=== PATIENT | female | born 2005 | race Two or more races ===

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

== ENCOUNTER 2024-08-16 08:09 | Emergency (ER) | payer MEDICAID, OTHER ==
[~2024-08-16] VITALS: Ht 160 cm; Wt 57.6 kg
--- NOTE | 2024-08-16 08:22 | ED.PDOC ---
History of Present Illness HPI Comments 19F presents to the ER w/ no prior MHx associated to the c/c of LLE. Pt reports on having a [employer] ball game yesterday and twisted her ankle and got her left ankle stepped on right after. Pt is ambulatory and the pain type of a 9.510. Social Hx of marijuana use. Denies chills, fever, N/V/D, SOB, CP. No other associated symptoms, modifiers, recent injuries or sick contacts present at this time. Time Seen by MD: 08:15 Reviewed Notes: Nurses Notes, Medications, Allergies Allergies: Coded Allergies: NO KNOWN ALLERGIES (Unverified , 07/18/23) Information Source: Patient Mode of Arrival: Ambulatory Severity: Moderate Timing: Days Duration: Since onset, Days Prehospital treatment: None Past Medical History PAST MEDICAL HISTORY: Denies Surgical History: Denies all surgeries AUDITING CONTROL CLERK History: No Pertinent AUDITING CONTROL CLERK History Family History Family History: Reviewed,noncontributory to illness, Unknown Social History Smoker: Non-Smoker Alcohol: Denies ETOH Use Drugs: Marijuana Lives In: Home Constitutional: reports: others (LLE pain); denies: chills, diaphoresis, fatigue, fever, malaise, sweats, weakness EENTM: denies: blurred vision, double vision, ear bleeding, ear discharge, ear drainage, ear pain, ear ringing, eye pain, eye redness, hearing loss, mouth pain, mouth swelling, nasal discharge, nose bleeding, nose congestion, nose pain, photophobia, tearing, throat pain, throat swelling, voice changes, others Respiratory: denies: cough, hemoptysis, orthopnea, SOB at rest, shortness of breath, SOB with excertion, stridor, wheezing, others Cardiovascular: denies: chest pain, dizzy spells, diaphoresis, Dyspnea on exertion, edema, irregular heart beat, left arm pain, lightheadedness, palpitations, PND, syncope, others Gastrointestinal: denies: abdomen distended, abdominal pain, blood streaked bowels, constipated, diarrhea, dysphagia, difficulty swallowing, hematemesis, melena, nausea, poor appetite, poor fluid intake, rectal bleeding, rectal pain, vomiting, others Genitourinary: denies: abnormal vagina bleeding, burning, dyspareunia, dysuria, flank pain, frequency, hematuria, incontinence, pain, , vagina discharge, urgency, others Neurological: denies: dizziness, fainting, headache, left sided numbness, left sided weakness, numbness, paresthesia, pre-existing deficit, right sided numbness, right sided weakness, seizure, speech problems, tingling, tremors, weakness, others Musculoskeletal: denies: back pain, gout, joint pain, joint swelling, muscle pain, muscle stiffness, neck pain, others Integumetry: denies: bruises, change in color, change in hair/nails, dryness, laceration, lesions, lumps, rash, wounds, others Allergic/Immunocompromised: denies: Difficulty Healing, Frequent Infections, Hives, Itching, others Hematologic/Lymphatic: denies: anemia, blood clots, easy bleeding, easy bruising, swollen glands, others Endocrine: denies: excessive hunger, excessive sweating, excessive thirst, excessive urination, flushing, intolerance to cold, intolerance to heat, unexplained weight gain, unexplained weight loss, others Psychiatric: denies: anxiety, bipolar disorder, depression, hopeless, panic disorder, schizophrenia, sleepless, suicidal, others All Other Systems: Reviewed and Negative Physical Exam Exam Comments left lower dorsal portion of the foot is tender in the middle General Appearance: No Apparent Distress, Normal HEENT: Normal ENT Inspection, Pharynx Normal, TMs Normal Neck: Full Range of Motion, Non-Tender, Normal, Normal Inspection Respiratory: Chest Non-Tender, Lungs Clear, No Accessory Muscle Use, No Respiratory Distress, Normal Breath Sounds Cardiovascular: No Edema, No JVD, No Murmur, No Gallop, Normal Peripheral Pulses, Regular Rate/Rhythm Breast Exam: Deferred Gastrointestinal: No Organomegaly, Non Tender, No Pulsatile Mass, Normal Bowel Sounds, Soft Genitalia: Deferred Pelvic: Deferred Rectal: Deferred Extremities: No calf tenderness, Normal capillary refill, Normal inspection, Normal range of motion, Non-tender, No pedal edema Musculoskeletal : Apperance: Normal Neurologic: Alert, employment educational coord II-XII nml as Tested, No Motor Deficits, Normal Affect, Normal Mood, No Sensory Deficits Cerebellar Function: Normal Reflexes: Normal Skin: Dry, Normal Color, Warm Lymphatic: No Adenopathy Was a procedure done? Was a procedure done?: Yes Sedation Sedation?: No Informed consent obtained: Yes Other Procedure Procedure splint of left foot, good position, normal neurovascular functions Differential Dx Considerations may include: fracture, dislocation, sprain, stain, contusion X-Ray, Labs, Meds, VS Vital Signs Date Time Temp Pulse Resp B/P (MAP) Pulse Ox O2 Delivery O2 Flow Rate FiO2 08/16/24 09:32 98.6 104 16 103/70 (81) 98 98.6 08/16/24 09:32 104 16 98 Room Air* 0 21 08/16/24 08:36 97.9 102 16 118/66 (83) 97 97.9 Current Medications Medications (Trade) Dose Ordered Sig/Cecily Route Start Time Stop Time Status Last Admin Ibuprofen (Motrin Tablet) 600 mg ONCE ONCE PO 08/16/24 08:15 08/16/24 08:16 DC 08/16/24 09:29 Time of 1ST Reevaluation: 08:45 Reevaluation 1ST: Unchanged Patient Education/Counseling: Diagnosis, Treatment, Prognosis, Need For Follow Up Family Education/Counseling: Diagnosis, Treatment, Prognosis, Need For Follow Up, No Family Present Departure 1 Departure Time of Disposition: 09:47 Impression: Primary Impression: Metatarsal fracture Qualified Codes: S92.302A - Fracture of unspecified metatarsal bone(s), left foot, initial encounter for closed fracture Disposition: 01 HOME / SELF CARE / HOMELESS Condition: Good e-Prescriptions Ibuprofen Micronized (MOTRIN TABLET) 600 Mg Tb 600 MG PO TID PRN, #40 TAB *Black box warning-NSAIDS can increase risk of LA & hypertension, GI irritation, ulceration, bleed, perferation. Do not use post cardiac surgery. Use short duration/lowest effective dose. Prov: LUZ GAYTAN MD 08/16/24 Discharged With: Self, Relative Critical Care Note Critical Care Time?: No Stability Stability form required: No I personally scribed for LUZ GAYTAN MD ([email or web address]) on 08/16/24 at 08:22. Electronically submitted by Giovanny Villatoro ([email or web address]). LUZ GAYTAN MD Aug 16, 2024 08:22
--- NOTE | 2024-08-16 09:01 | DVH ---
Indication: injury Technique: 3 views of the left foot Comparison: None FINDINGS/IMPRESSION: 6 mm slightly radiopaque density at the dorsal aspect of the base of the metatarsal bones on the late ral view could represent a small chip fracture. Correlate with point tenderness. Otherwise, no fracture identified.
[2024-08-16] MEDS: IBUPROFEN 600 MG TAB PO ONE (09:29)
[2024-08-16 09:32] VITALS: BP 103/70; PULSE 104; RESP 16; TEMP 98.6; O2SAT 98
[2024-08-16] MEDS ORDERED: IBU600T PO (09:49)
== END 2024-08-16 10:01 | disposition home or self-care (01) ==
LOC: ER 08:09
DX: S92.302A Fracture of unspecified metatarsal bone(s), left foot, initial encounter for closed fracture (principal); F12.90 Cannabis use, unspecified, uncomplicated; X50.1XXA Overexertion from prolonged static or awkward postures, initial encounter; Y93.89 Activity, other specified; Y92.89 Other specified places as the place of occurrence of the external cause; Y99.8 Other external cause status
CPT/HCPCS: 29515; 73630